=== PATIENT | female | born 1995 | race Hispanic/Latino ===

== ENCOUNTER 2022-06-08 09:45 | Inpatient (IN) | payer MEDICAID, SELFPAY ==
[2022-06-08] MEDS ORDERED: Metoclopramide HCl 10 MG/2 ML VIAL IVP SCH (12:00)
[2022-06-08] MEDS ORDERED: diphenhydrAMINE 50 MG/ML VIAL IVP SCH (12:00)
[2022-06-08 13:01] LABS: #Eosinphils 0.1 10x3/uL (0.0-0.5); #Monocytes 0.6 10x3/uL (0.0-1.1); #Neutrophils 7.7 10x3/uL (1.5-8.4); %Basophils 0.2 % (0.0-2.0); %Eosinophils 0.8 % (0.0-6.0); %Lymphocytes 20.8 % (18.0-47.0); %Monocytes 5.2 % (0.0-10.0); %Neutrophils 72.5 % (40.0-75.0); Hemoglobin 13.3 g/dL (12.0-15.5); Mean Corpuscular HGB CONC 34.3 g/dL (32.0-36.0); Mean Corpuscular Hemoglobin 29.4 pg (27.0-33.0); Mean Corpuscular Volume 85.8 fl (81.6-98.3); Mean Platelet Volume 10.8 fl (7.4-10.4); Platelet Count 221 10x3/uL (150-450); RBC Distribution Width 13.3 % (11.5-14.5); Red Blood Cell (RBC) Count 4.52 10x6/uL (3.90-5.03); White Blood Cell (WBC) Count 10.6 10x3/uL (3.5-10.5)
[2022-06-08 13:15] LABS: ALT (SGPT) 15 U/L (8-55); AST (SGOT) 17 U/L (5-34); Albumin 3.3 g/dL (3.5-5.0); Alkaline Phosphatase 183 U/L (40-110); Anion Gap 13 mmol/L (10-20); BUN (Urea Nitrogen) 7 mg/dL (7.0-18.7); Calc. Creatinine Clearance 0 mL/min (70-130); Calcium 8.4 mg/dL (7.8-10.44); Carbon Dioxide 20 mmol/L (22-29); Chloride 107 mmol/L (98-107); Estimated GFR 126; Globulin 2.9 g/dL (2.4-3.5); Glucose 75 mg/dL (70-105); Potassium 3.6 mmol/L (3.5-5.1); Protein, Total 6.2 g/dL (6.0-8.3); Sodium 136 mmol/L (136-145)
[2022-06-08] MEDS: Lactated Ringer's 1,000 ML IV SCH ×2 (13:51→19:38)
[2022-06-08 15:26] LABS: Bilirubin Neg (Negative); Blood, Urine Negative (Negative); Clarity Clear (Clear); Glucose, Urine (Dipstick) Normal (Negative); Ketone, Urine Negative (Negative); Leukocyte Negative (Negative); Nitrite Negative (Negative); Protein, Urine (Dipstick) Negative (Neg-Trace); Urobilinogen Normal mg/dL (Less than 2)
[2022-06-08 15:29] LABS: Urine Culture Reflex No No
[2022-06-08 15:53] LABS: Bacteria/HPF Rare-Few HPF (None Seen); RBC/HPF 0-3 HPF (0-3); Squamous Epithelial 0-3 HPF (0-3); Transitional Epithelial 0-3 HPF (None Seen); WBC/HPF 0-3 HPF (0-3)
[2022-06-08 17:12] LABS: Fetal Membranes Rupture No Membranes Rupture (No Rupture)
[2022-06-08] MEDS ORDERED: Ondansetron PF 4 MG/2 ML Vial IVP PRN (17:40)
[2022-06-08] MEDS ORDERED: Promethazine HCl 25 MG/ML VIAL IM PRN (17:40)
[2022-06-08] MEDS ORDERED: Acetaminophen 500 MG TAB PO PRN (17:40)
[2022-06-08] MEDS ORDERED: hydrALAZINE 20 MG/ML VIAL SLOW IVP PRN (17:40)
[2022-06-08] MEDS ORDERED: Betamet Acet/Betamet Na Ph 30 MG/5 ML VIAL IM SCH (17:45)
[2022-06-08 20:42] LABS: SARS-CoV-2 NAA Rapid Test Not Detected (NotDetected)
[2022-06-09] MEDS ORDERED: Meperidine HCl/PF 25 MG/ML VIAL SLOW IVP PRN (06:50)
[2022-06-09] MEDS ORDERED: Promethazine HCl 25 MG/ML VIAL IM PRN ×3 (06:50→14:38)
[2022-06-09] MEDS ORDERED: Naloxone HCl 0.4 mg/ml Vial IV PRN ×2 (06:50→12:41)
[2022-06-09] MEDS ORDERED: Moisturizing Cream (Eucerin) 113 GM JAR TOP PRN (06:50)
[2022-06-09] MEDS ORDERED: Ondansetron PF 4 MG/2 ML Vial IVP PRN ×3 (06:50→14:38)
[2022-06-09] MEDS ORDERED: Promethazine HCl 25 MG SUPP PR PRN (06:50)
[2022-06-09] MEDS ORDERED: Fentanyl 100 MCG/2 ML VIAL SLOW IVP PRN ×2 (06:50→12:11)
[2022-06-09] MEDS ORDERED: HYDROmorphone 2 MG/ML VIAL SLOW IVP PRN (06:50)
[2022-06-09] MEDS ORDERED: diphenhydrAMINE 50 MG/ML VIAL IVP PRN ×2 (06:50→12:41)
[2022-06-09] MEDS ORDERED: Naloxone HCl 0.4 mg/ml Vial IVP PRN ×2 (06:50)
[2022-06-09] MEDS ORDERED: Ondansetron HCl/PF 4 MG/2 ML Vial IVP PRN (06:50)
[2022-06-09] MEDS ORDERED: Ketorolac Tromethamine 30 MG/ML VIAL IVP SCH (07:00)
[2022-06-09] MEDS ORDERED: Communication Order-Pharmacy FS SCH (07:00)
[2022-06-09] MEDS ORDERED: Phenylephrine 10 MG/ML VIAL ONE (07:02)
[2022-06-09] MEDS ORDERED: Oxytocin 10 UNITS/ML VIAL ONE ×2 (07:02→11:29)
[2022-06-09] MEDS ORDERED: Ondansetron PF 4 MG/2 ML Vial ONE (07:02)
[2022-06-09] MEDS ORDERED: CEFAZOLIN 2 GM VIAL ONE (07:48)
[2022-06-09] MEDS ORDERED: Famotidine/PF 20 mg/2ml Vial ONE (07:48)
[2022-06-09] MEDS ORDERED: Fentanyl 100 MCG/2 ML VIAL ONE ×2 (08:04→12:01)
[2022-06-09] MEDS ORDERED: Morphine PF 10 MG/10 ML VIAL ONE (08:04)
[2022-06-09] MEDS: Lactated Ringer's 1,000 ML IV SCH ×2 (08:17→09:26)
[2022-06-09 09:01] VITALS: BMI 25.9
[2022-06-09 09:10] LABS: Syphilis Antibody Nonreactive (Nonreactive); Syphilis Antibody Index 0.04 S/CO (<1.00 Non-Reactive)
[2022-06-09 09:12] LABS: HBSAg Index 0.18 S/CO (0-0.99); HIV (1/2) Antibody/Antigen Non-Reactive (NonReactive); HIV 1/2 INDEX 0.07 S/CO (<1.00); Hep B Surf Ag Non-Reactive S/CO (NonReactive)
[2022-06-09] MEDS ORDERED: Dexamethasone 4 mg/ml Vial ONE (10:21)
[2022-06-09] MEDS ORDERED: PROPOFOL 20 ML ONE (10:53)
[2022-06-09] MEDS ORDERED: Succinylcholine 200 MG/10 ml SYRINGE FS ONE (10:53)
[2022-06-09] MEDS ORDERED: HYDROmorphone 0.5 MG/0.5 ML SYRINGE SLOW IVP PRN (12:11)
[2022-06-09] MEDS ORDERED: diphenhydrAMINE 50 MG/ML VIAL IM PRN (12:41)
[2022-06-09] MEDS ORDERED: Zolpidem Tartrate 5 MG TAB PO PRN (12:41)
[2022-06-09] MEDS ORDERED: fentaNYL Citrate/PF 2,000 MCG in Sodium Chloride 0.9% 60 ML IV PRN (12:41)
[2022-06-09] MEDS ORDERED: diphenhydrAMINE 25 MG CAP PO PRN ×2 (12:41→14:38)
[2022-06-09] MEDS ORDERED: Communication Order-Pharmacy FS PRN (12:45)
[2022-06-09] MEDS ORDERED: fentaNYL Citrate/PF 1,000 MCG, Admixture Fee 1 EACH in Sodium Chloride 0.9% 30 ML IV PRN (13:15)
[2022-06-09] MEDS ORDERED: Boostrix 0.5 ML (Tdap) VIAL (>/=7 yrs of age) IM ONE (14:38)
[2022-06-09] MEDS ORDERED: Misoprostol 200 MCG TAB PR PRN (14:38)
[2022-06-09] MEDS ORDERED: hydrALAZINE 20 MG/ML VIAL SLOW IVP PRN (14:38)
[2022-06-09] MEDS ORDERED: NS w/ Oxytocin 30 units 500 ML IV SCH (14:38)
[2022-06-09] MEDS: Docusate 100 MG CAP PO SCH (22:27)
[2022-06-09] MEDS: Ferrous Sulfate 325 MG TAB PO SCH (22:27)
[2022-06-10] MEDS: Ketorolac Tromethamine 30 MG/ML VIAL IVP PRN ×2 (00:03→06:08)
[2022-06-10] MEDS: Acetaminophen 325 MG TAB PO PRN (04:24)
[2022-06-10 06:01] LABS: Hemoglobin 11.7 g/dL (12.0-15.5); Mean Corpuscular HGB CONC 33.9 g/dL (32.0-36.0); Mean Corpuscular Hemoglobin 29.8 pg (27.0-33.0); Mean Corpuscular Volume 87.8 fl (81.6-98.3); Mean Platelet Volume 10.9 fl (7.4-10.4); Platelet Count 224 10x3/uL (150-450); Red Blood Cell (RBC) Count 3.93 10x6/uL (3.90-5.03); White Blood Cell (WBC) Count 15.7 10x3/uL (3.5-10.5)
[2022-06-10] MEDS: Ferrous Sulfate 325 MG TAB PO SCH ×2 (08:21→21:08)
[2022-06-10] MEDS: Prenatal Vitamin 1 TAB PO SCH (08:28)
[2022-06-10] MEDS: Docusate 100 MG CAP PO SCH ×2 (08:28→21:09)
[2022-06-10] MEDS: HYDROcodone/Acetaminophen 5/325 mg Tablet PO PRN ×2 (14:43→21:09)
[2022-06-10] MEDS: Ibuprofen 800 MG TAB PO SCH ×2 (14:43→21:12)
[2022-06-10] MEDS: Simethicone Chewable 80 MG TAB PO PRN ×2 (17:02→21:09)
[2022-06-11] MEDS: HYDROcodone/Acetaminophen 5/325 mg Tablet PO PRN ×3 (01:11→19:41)
[2022-06-11] MEDS: Ibuprofen 800 MG TAB PO SCH ×3 (05:34→21:17)
[2022-06-11] MEDS: Ferrous Sulfate 325 MG TAB PO SCH ×2 (08:33→21:16)
[2022-06-11] MEDS: Prenatal Vitamin 1 TAB PO SCH (09:17)
[2022-06-11] MEDS: Docusate 100 MG CAP PO SCH ×2 (09:17→21:17)
[2022-06-11] MEDS: Simethicone Chewable 80 MG TAB PO PRN ×3 (09:17→21:17)
[2022-06-11] MEDS ORDERED: HYDROcodone/Acetaminophen 5/325 mg Tablet PO PRN (11:28)
[2022-06-11] MEDS ORDERED: HYDROcodone/Acetaminophen 5/325 mg Tablet PO SCH (11:30)
[2022-06-12] MEDS: Ibuprofen 800 MG TAB PO SCH ×2 (06:29→14:10)
[2022-06-12] MEDS: HYDROcodone/Acetaminophen 5/325 mg Tablet PO PRN ×2 (06:29→18:42)
[2022-06-12] MEDS ORDERED: Metoclopramide HCl 10 MG TAB PO SCH (08:30)
[2022-06-12] MEDS ORDERED: diphenhydrAMINE 50 MG/ML VIAL IM SCH (08:30)
[2022-06-12] MEDS: Docusate 100 MG CAP PO SCH (08:38)
[2022-06-12] MEDS: Prenatal Vitamin 1 TAB PO SCH (08:39)
[2022-06-12] MEDS: Acetaminophen 325 MG TAB PO PRN (08:39)
[2022-06-12] MEDS: Ferrous Sulfate 325 MG TAB PO SCH (09:46)
[2022-06-12 19:43] VITALS: BP 143/97; TEMP 97.4
== END 2022-06-12 20:25 | disposition home or self-care (01) | DRG 788 ==
LOC: CSHLD/OP 09:45 → CSHLD 19:49 → EDBD 19:49 → CSHPP 06-09 14:40
PROVIDERS: ADMIT Obstetrics & Gynecology; ATTEND Obstetrics & Gynecology
PROC: 10D00Z1 Extraction of Products of Conception, Low, Open Approach (ICD-10-PCS; principal; 2022-06-09)
PROC: 3E0334Z Introduction of Serum, Toxoid and Vaccine into Peripheral Vein, Percutaneous Approach (ICD-10-PCS; 2022-06-09)
DX: O41.03X0 Oligohydramnios, third trimester, not applicable or unspecified (principal); O26.893 Other specified pregnancy related conditions, third trimester; Z67.11 Type A blood, Rh negative; Z20.822 Contact with and (suspected) exposure to COVID-19; Z3A.36 36 weeks gestation of pregnancy; Z37.0 Single live birth; O99.824 Streptococcus B carrier state complicating childbirth; O34.211 Maternal care for low transverse scar from previous cesarean delivery; K21.9 Gastro-esophageal reflux disease without esophagitis; O99.62 Diseases of the digestive system complicating childbirth; Z79.82 Long term (current) use of aspirin; O76 Abnormality in fetal heart rate and rhythm complicating labor and delivery; R93.0 Abnormal findings on diagnostic imaging of skull and head, not elsewhere classified; O99.892 Other specified diseases and conditions complicating childbirth
CPT/HCPCS: 36415; 51702; 70551; 76819; 80053; 81001; 82805; 84112; 85025; 85027; 85461; 86780; 86850; 86870; 86900; 86901; 87340; 87389; 90384; 96372; 99285; J0690; J0702; J1100; J1170; J1200; J1885; J2274; J2370; J2405; J2590; J2704; J2765; J3010; J7120; S0028; U0002

== ENCOUNTER 2025-06-13 10:18 | Emergency (ER) | payer MEDICAID ==
[~2025-06-13 10:18] MED LIST: Iopamidol 370 76% 100 ML VIAL ONE
[2025-06-13 11:28] LABS: Glucose, Urine (Dipstick) Normal (Negative); Leukocyte Negative (Negative); Protein, Urine (Dipstick) Negative (Neg-Trace); Specific Gravity, Urine 1.010 (1.005-1.030)
[2025-06-13 11:30] LABS: Pregnancy Test - Urine (BHCG) Negative (Negative); Pregu Control Background? CLEAR/WHITE (CLR/WHITE); Pregu Control Bar Appear? YES (CONTROL BAR)
[2025-06-13 11:47] LABS: Bacteria/HPF Rare-Few HPF (None Seen); CAUTI Indications for Culture Pelvic or flank pain; RBC/HPF 0-3 HPF (0-3); WBC/HPF 0-3 HPF (0-3); Yeast-Budding Rare HPF (None Seen)
[2025-06-13 11:48] LABS: Urine Culture Reflex No No
[2025-06-13 14:25] LABS: #Basophils Less than 0.03 10x3/uL (0.0-0.2); #Eosinophils 0.09 10x3/uL (0.0-0.5); #Monocytes 0.28 10x3/uL (0.0-1.1); #Neutrophils 4.69 10x3/uL (1.5-8.4); %Basophils 0.3 % (0.0-2.0); %Eosinophils 1.3 % (0.0-6.0); %Lymphocytes 28.7 % (18.0-47.0); %Monocytes 3.9 % (0.0-10.0); %Neutrophils 65.7 % (40.0-75.0); Hematocrit 42.5 % (34.9-44.5); Hemoglobin 14.4 g/dL (12.0-15.5); Mean Corpuscular Hemoglobin 29.8 pg (27.0-33.0); Mean Corpuscular Volume 88.0 fL (81.6-98.3); Platelet Count 255 10x3/uL (150-450); Red Blood Cell (RBC) Count 4.83 10x6/uL (3.90-5.03); White Blood Cell (WBC) Count 7.14 10x3/uL (3.5-10.5)
[2025-06-13] MEDS ORDERED: Ketorolac Tromethamine 30 MG (1 mL) VIAL ONE (14:44)
[2025-06-13 14:57] LABS: ALT (SGPT) 20 U/L (Less than 34); AST (SGOT) 21 U/L (11-34); Albumin 4.3 g/dL (3.1-4.5); Alkaline Phosphatase 60 U/L (40-110); Anion Gap 11 mmol/L (10-20); BUN (Urea Nitrogen) 8 mg/dL (7.0-18.7); Bilirubin, Total 1.6 mg/dL (0.3-1.2); Calc. Creatinine Clearance 0 mL/min (70-130); Calcium 8.9 mg/dL (7.8-10.44); Carbon Dioxide 25 mmol/L (22-29); Chloride 108 mmol/L (98-107); Globulin 2.8 g/dL (2.4-3.5); Glucose 84 mg/dL (70-105); Lipase 14 U/L (8-78); Potassium 3.2 mmol/L (3.5-5.1); Sodium 141 mmol/L (136-145)
== END 2025-06-13 16:59 | disposition home or self-care (01) ==
LOC: CSHERS 10:18
DX: G89.18 Other acute postprocedural pain (principal)
CPT/HCPCS: 36416; 74177; 80053; 81001; 81025; 83690; 85025; 96374; J1885; Q9967